=== PATIENT | female | born 1980 | race Caucasian/White ===

== ENCOUNTER 2017-10-20 17:07 | Emergency (ER) | payer OTHER ==
[2017-10-20 17:27] VITALS: BP 129/88
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
== END 2017-10-20 18:50 | disposition home or self-care (01) ==
LOC: ER 17:52
DX: Z77.21 Contact with and (suspected) exposure to potentially hazardous body fluids (principal)
CPT/HCPCS: 86703; 86706; 86803; 87340; 99282

== ENCOUNTER 2018-01-21 18:01 | Emergency (ER) | payer OTHER ==
[2018-01-21 18:19] VITALS: BP 129/94
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
== END 2018-01-21 18:31 | disposition home or self-care (01) ==
LOC: ER 18:28
DX: Z77.21 Contact with and (suspected) exposure to potentially hazardous body fluids (principal)
CPT/HCPCS: 36415; 86703; 86706; 86803; 87340; 99282

== ENCOUNTER 2018-04-20 08:44 | Emergency (ER) | payer BC, OTHER ==
[2018-04-20] MEDS ORDERED: ONDANSETRON 4 MG/2 ML VIAL IVP ONE (09:05)
[2018-04-20] MEDS ORDERED: NS(*) 0.9% 1000 ML BAG 1,000 ML IV ONE (09:05)
[2018-04-20 09:13] LABS: PLATELET COUNT, AUTOMATED 299 K/uL (150-450)
--- NOTE | 2018-04-20 09:15 | ER Report ---
History and Physical Time Seen By MD: 09:15 Hx. of Stated Complaint: LLQ PAIN, N/V/D SINCE YESTERDAY HPI/ROS 37-year-old otherwise healthy female reports nausea vomiting and left upper quadrant pain since yesterday. To take by mouth. No diarrhea. No fever chills. No chest pain or shortness of breath. No Trauma. Allergies: Coded Allergies: BEE STINGS (Verified Allergy, Unknown, 01/21/18) mushroom (Verified Allergy, Unknown, 01/21/18) Home Meds Active Scripts Ondansetron Hcl (ZOFRAN) 4 Mg Tablet, 4 MG PO Q6-8H for 5 Days, #10 TAB Prov:MELISSA ANNA MD 04/20/18 Reviewed Nurses Notes: Yes Old Medical Records Reviewed: Yes Constitutional Vital Sign - Last 24 Hours 04/20/18 08:54 Temp 97.7 Pulse 99 Resp 20 B/P (MAP) 141/96 Pulse Ox 95 O2 Delivery Room Air Physical Exam General Appearance: The patient is alert, has no immediate need for airway protection and no current signs of toxicity. Eyes: Pupils equal and round no injection. Respiratory: Chest is non tender, lungs are clear to auscultation. Cardiac: regular rate and rhythm Gastrointestinal: Abdomen is soft with mild TTP at the LUQ Skin: No rashes or lesions. DIFFERENTIAL DIAGNOSIS: After history and physical exam differential diagnosis was considered for abdominal pain including but not limited to appendicitis, cholecystitis, gastritis and urinary tract infection. Medical Decision Making Data Points Result Diagram: 04/20/18 0900 04/20/18 0900 Laboratory Hematology Test 04/20/18 09:00 04/20/18 09:05 Red Blood Count 5.44 M/uL (4.17-5.56) Mean Corpuscular Volume 82.3 fL (80.0-96.0) Mean Corpuscular Hemoglobin 27.5 pg (26.0-33.0) Mean Corpuscular Hemoglobin Concent 33.4 g/dL (32.0-36.0) Red Cell Distribution Width 14.9 % (11.5-14.5) Mean Platelet Volume 8.4 fL (7.2-11.1) Neutrophils (%) (Auto) 54.2 % (39.4-72.5) Lymphocytes (%) (Auto) 33.8 % (17.6-49.6) Monocytes (%) (Auto) 8.7 % (4.1-12.4) Eosinophils (%) (Auto) 2.8 % (0.4-6.7) Basophils (%) (Auto) 0.5 % (0.3-1.4) Nucleated RBC Relative Count (auto) 0.1 /100WBC Neutrophils # (Auto) 5.9 K/uL (2.0-7.4) Lymphocytes # (Auto) 3.7 K/uL (1.3-3.6) Monocytes # (Auto) 1.0 K/uL (0.3-1.0) Eosinophils # (Auto) 0.3 K/uL (0.0-0.5) Basophils # (Auto) 0.1 K/uL (0.0-0.1) Nucleated RBC Absolute Count (auto) 0.01 K/uL Sodium Level 136 mmol/L (137-145) Potassium Level 4.3 mmol/L (3.5-5.0) Chloride Level 111 mmol/L (98-107) Carbon Dioxide Level 19 mmol/L (22-31) Blood Urea Nitrogen 10 mg/dl (7-18) Creatinine 0.60 mg/dl (0.52-1.04) Glomerular Filtration Rate Calc > 60.0 Random Glucose 99 mg/dl (75-110) Calcium Level 9.2 mg/dl (8.4-10.2) Total Bilirubin 0.3 mg/dl (0.2-1.3) Aspartate Amino Transf (AST/SGOT) 52 U/L (0-35) Alanine Aminotransferase (ALT/SGPT) 72 U/L (0-56) Alkaline Phosphatase 92 U/L (0-126) Total Protein 7.6 g/dl (6.3-8.2) Albumin 4.2 g/dl (3.5-5.0) Lipase 226 U/L (23-300) Human Chorionic Gonadotropin, Qual Negative (NEGATIVE) Urine Color Yellow Urine Clarity Slightly-cloudy Urine pH 5.0 pH (4.8-9.5) Urine Specific [place] 1.018 Urine Protein Negative mg/dL (NEGATIVE) Urine Glucose (UA) Negative mg/dL (NEGATIVE) Urine Ketones Negative mg/dL (NEGATIVE) Urine Blood Negative (NEGATIVE) Urine Nitrite Negative (NEGATIVE) Urine Bilirubin Negative (NEGATIVE) Urine Urobilinogen Negative mg/dL (0.2-1.9) Urine Leukocyte Esterase Moderate (NEGATIVE) Urine RBC None /HPF (0-2/HPF) Urine WBC 19 /HPF (0-5/HPF) Urine Squamous Epithelial Cells Many /LPF (</=FEW) Urine Bacteria Few /HPF (NONE-FEW) Urine Mucus Few /HPF (NONE-FEW) Chemistry Test 04/20/18 09:00 04/20/18 09:05 White Blood Count 10.9 k/uL (4.5-11.0) Red Blood Count 5.44 M/uL (4.17-5.56) Hemoglobin 14.9 g/dL (12.0-16.0) Hematocrit 44.8 % (34.0-47.0) Mean Corpuscular Volume 82.3 fL (80.0-96.0) Mean Corpuscular Hemoglobin 27.5 pg (26.0-33.0) Mean Corpuscular Hemoglobin Concent 33.4 g/dL (32.0-36.0) Red Cell Distribution Width 14.9 % (11.5-14.5) Platelet Count 299 K/uL (150-450) Mean Platelet Volume 8.4 fL (7.2-11.1) Neutrophils (%) (Auto) 54.2 % (39.4-72.5) Lymphocytes (%) (Auto) 33.8 % (17.6-49.6) Monocytes (%) (Auto) 8.7 % (4.1-12.4) Eosinophils (%) (Auto) 2.8 % (0.4-6.7) Basophils (%) (Auto) 0.5 % (0.3-1.4) Nucleated RBC Relative Count (auto) 0.1 /100WBC Neutrophils # (Auto) 5.9 K/uL (2.0-7.4) Lymphocytes # (Auto) 3.7 K/uL (1.3-3.6) Monocytes # (Auto) 1.0 K/uL (0.3-1.0) Eosinophils # (Auto) 0.3 K/uL (0.0-0.5) Basophils # (Auto) 0.1 K/uL (0.0-0.1) Nucleated RBC Absolute Count (auto) 0.01 K/uL Glomerular Filtration Rate Calc > 60.0 Calcium Level 9.2 mg/dl (8.4-10.2) Total Bilirubin 0.3 mg/dl (0.2-1.3) Aspartate Amino Transf (AST/SGOT) 52 U/L (0-35) Alanine Aminotransferase (ALT/SGPT) 72 U/L (0-56) Alkaline Phosphatase 92 U/L (0-126) Total Protein 7.6 g/dl (6.3-8.2) Albumin 4.2 g/dl (3.5-5.0) Lipase 226 U/L (23-300) Human Chorionic Gonadotropin, Qual Negative (NEGATIVE) Urine Color Yellow Urine Clarity Slightly-cloudy Urine pH 5.0 pH (4.8-9.5) Urine Specific [place] 1.018 Urine Protein Negative mg/dL (NEGATIVE) Urine Glucose (UA) Negative mg/dL (NEGATIVE) Urine Ketones Negative mg/dL (NEGATIVE) Urine Blood Negative (NEGATIVE) Urine Nitrite Negative (NEGATIVE) Urine Bilirubin Negative (NEGATIVE) Urine Urobilinogen Negative mg/dL (0.2-1.9) Urine Leukocyte Esterase Moderate (NEGATIVE) Urine RBC None /HPF (0-2/HPF) Urine WBC 19 /HPF (0-5/HPF) Urine Squamous Epithelial Cells Many /LPF (</=FEW) Urine Bacteria Few /HPF (NONE-FEW) Urine Mucus Few /HPF (NONE-FEW) Urinalysis Test 04/20/18 09:05 Urine Color Yellow Urine Clarity Slightly-cloudy Urine pH 5.0 pH (4.8-9.5) Urine Specific [place] 1.018 Urine Protein Negative mg/dL (NEGATIVE) Urine Glucose (UA) Negative mg/dL (NEGATIVE) Urine Ketones Negative mg/dL (NEGATIVE) Urine Blood Negative (NEGATIVE) Urine Nitrite Negative (NEGATIVE) Urine Bilirubin Negative (NEGATIVE) Urine Urobilinogen Negative mg/dL (0.2-1.9) Urine Leukocyte Esterase Moderate (NEGATIVE) Urine RBC None /HPF (0-2/HPF) Urine WBC 19 /HPF (0-5/HPF) Urine Squamous Epithelial Cells Many /LPF (</=FEW) Urine Bacteria Few /HPF (NONE-FEW) Urine Mucus Few /HPF (NONE-FEW) ED Course/Re-evaluation ED Course Nausea and vomiting improved with Zofran and IV fluids. Only mild left upper quadrant tenderness to palpation. No trauma. No sore throat or fever chills. No rash. Decision to Disposition Date: Apr 20, 2018 Decision to Disposition Time: 12:06 Depart Departure Latest Vital Signs Vital Signs Date Time Temp Pulse Resp B/P (MAP) Pulse Ox O2 Delivery O2 Flow Rate FiO2 04/20/18 08:54 97.7 99 20 141/96 95 Room Air Impression: Primary Impression: Viral gastritis Condition: Improved Disposition: HOME OR SELF-CARE New Scripts Ondansetron Hcl (ZOFRAN) 4 Mg Tablet 4 MG PO Q6-8H for 5 Days, #10 TAB Prov: MELISSA ANNA MD 04/20/18 Patient Instructions: Acute Nausea and Vomiting (ED) MELISSA ANNA MD Apr 20, 2018 09:15
[2018-04-20 09:30] VITALS: BP 120/85
[2018-04-20] MEDS ORDERED: ONDA4TAB97 PO (11:36)
== END 2018-04-20 11:42 | disposition home or self-care (01) ==
LOC: ER 09:17
DX: A08.4 Viral intestinal infection, unspecified (principal)
CPT/HCPCS: 81001; 83690; 84703; 85025; 96361; 96374; 99284; J2405; J7030; 82040; 82247; 82310; 82374; 82435; 82565; 82947; 84075; 84132; 84155; 84295; 84450; 84460; 84520

== ENCOUNTER → 2018-04-20 | Outpatient (CLI) | payer OTHER ==
[~2018-04-20] MED LIST: ONDA4TAB97 PO
== END ==
LOC: LAB 16:00 → EDSTATUS 04-21 12:46
DX: Z77.21 Contact with and (suspected) exposure to potentially hazardous body fluids (principal)
CPT/HCPCS: 86703; 86803